=== PATIENT | female | born 1990 | race Two or more races ===

== ENCOUNTER → 2021-01-27 | Outpatient (CLI) | payer OTHER | END | disposition home or self-care (01) | LOC: PRENATAL 01-06 09:30 | PROVIDERS: ATTEND Obstetrics & Gynecology Maternal & Fetal Medicine | DX: Z36.89 Encounter for other specified antenatal screening (principal); O36.80X1 Pregnancy with inconclusive fetal viability, fetus 1; Z3A.16 16 weeks gestation of pregnancy ==

== ENCOUNTER → 2021-03-04 | Outpatient (CLI) | payer OTHER | END | disposition home or self-care (01) | LOC: PRENATAL 09:00 | PROVIDERS: ATTEND Obstetrics & Gynecology Maternal & Fetal Medicine | DX: O35.0XX1 Maternal care for (suspected) central nervous system malformation in fetus, fetus 1 (principal); O35.3XX1 Maternal care for (suspected) damage to fetus from viral disease in mother, fetus 1; O98.512 Other viral diseases complicating pregnancy, second trimester; Z36.89 Encounter for other specified antenatal screening; Z3A.20 20 weeks gestation of pregnancy ==

== ENCOUNTER → 2021-06-17 | Outpatient (CLI) | payer OTHER ==
[~2021-06-17] MED LIST: NASAL MIST126 ML; PRENATAL TABLE1 EAC1 PO; SYEDA 28 TABLE1 EACH
== END | disposition home or self-care (01) ==
LOC: PRENATAL 06-08 15:00
PROVIDERS: ATTEND Obstetrics & Gynecology Maternal & Fetal Medicine
DX: O26.843 Uterine size-date discrepancy, third trimester (principal); O35.0XX1 Maternal care for (suspected) central nervous system malformation in fetus, fetus 1; Z36.89 Encounter for other specified antenatal screening; Z3A.36 36 weeks gestation of pregnancy

== ENCOUNTER 2021-07-09 14:45 | Inpatient (IN) | payer OTHER ==
[~2021-07-09] VITALS: Ht 162.6 cm; Wt 3.6 kg
[2021-07-18] MEDS ORDERED: NASAL MIST126 ML (08:32)
[2021-07-18] MEDS ORDERED: PRENATAL TABLE1 EAC1 PO (08:32)
== END 2021-07-21 12:32 | disposition home or self-care (01) | DRG 788 ==
LOC: OB/GYN 07-18 15:19 → LDR 07-18 15:19 → OB/GYN 07-18 22:03 → LDR 07-21 14:45
PROVIDERS: ADMIT Student in an Organized Health Care Education/Training Program; ATTEND Student in an Organized Health Care Education/Training Program
PROC: 10907ZC Drainage of Amniotic Fluid, Therapeutic from Products of Conception, Via Natural or Artificial Opening (ICD-10-PCS; 2021-07-18)
PROC: 3E033VJ Introduction of Other Hormone into Peripheral Vein, Percutaneous Approach (ICD-10-PCS; 2021-07-18)
PROC: 4A1HXFZ Monitoring of Products of Conception, Cardiac Rhythm, External Approach (ICD-10-PCS; 2021-07-18)
PROC: 10D00Z1 Extraction of Products of Conception, Low, Open Approach (ICD-10-PCS; principal; 2021-07-18 20:00)
DX: O62.1 Secondary uterine inertia (principal); O61.0 Failed medical induction of labor; Z3A.39 39 weeks gestation of pregnancy; Z37.0 Single live birth

== ENCOUNTER 2021-07-18 07:35 | Outpatient (CLI) | payer OTHER ==
[2021-07-18] MEDS ORDERED: NASAL MIST126 ML (08:32)
[2021-07-18] MEDS ORDERED: PRENATAL TABLE1 EAC1 PO (08:32)
== END 2021-07-18 14:49 | disposition still patient (30) ==
LOC: OBS/DEL 07:35
PROVIDERS: ATTEND Student in an Organized Health Care Education/Training Program
DX: O47.1 False labor at or after 37 completed weeks of gestation (principal); Z3A.39 39 weeks gestation of pregnancy

== ENCOUNTER 2021-07-23 17:15 | Inpatient (IN) | payer OTHER ==
[~2021-07-23 17:15] MED LIST changes: -SYEDA 28 TABLE1 EACH
[2021-07-24] MEDS ORDERED: SYEDA 28 TABLE1 EACH (08:11)
== END 2021-07-24 15:31 | disposition home or self-care (01) | DRG 776 ==
LOC: SEC-K 17:15
PROVIDERS: ADMIT Student in an Organized Health Care Education/Training Program; ATTEND Student in an Organized Health Care Education/Training Program
DX: O99.63 Diseases of the digestive system complicating the puerperium (principal); K56.7 Ileus, unspecified; Z98.891 History of uterine scar from previous surgery